=== PATIENT | female | born 1980 | race Caucasian/White ===

== ENCOUNTER 2025-01-29 12:58 | Outpatient (RCR) | payer OTHER, SELFPAY ==
--- NOTE | 2025-01-30 13:47 | HO.PHP ---
At 10:25 AM, [facility] staff member, Ana informed the clinician that Letitia's insurance has not been valid since December 21, 2024. Ana walked Letitia down for financial assistance but she didn't qualify, therefore, Letitia expressed she was going to be reaching out to DTA to get clarification around attendance.
== END 2025-01-29 23:59 | disposition home or self-care (01) ==
LOC: HO.PHPA 12:58
PROVIDERS: Visit Provider Psychiatry & Neurology Psychiatry
DX: F33.2 Major depressive disorder, recurrent severe without psychotic features (principal); F41.9 Anxiety disorder, unspecified; F43.10 Post-traumatic stress disorder, unspecified
CPT/HCPCS: 90791; 90853

== ENCOUNTER → 2025-02-28 09:31 | Outpatient (REF) | payer OTHER, SELFPAY ==
--- NOTE | 2025-02-28 | ECG_ITS ---
Test Reason : QTC CHECK ROUTINE Blood Pressure : */* mmHG Vent. Rate : 77 BPM Atrial Rate : 77 BPM P-R Int : 124 ms QRS Dur : 74 ms QT Int : 398 ms P-R-T Axes : 36 50 16 degrees QTcB Int : 450 ms Normal sinus rhythm Normal ECG No previous ECGs available Referred By: Reyna Gotti Electronically Signed By: Yobani Hastings
--- OUTSIDE RECORDS SUMMARY | 2025-02-28 10:03 | XMS_ITS | Clinical Summary ---
Author Organization [facility] Address [address] [place] [address] Phone Care Team Providers Care Shrimp Trawler Captain Name Role Phone Medina Harris MD Primary Care Provider [phone] Allergies Active Allergy Reactions Criticality Noted Date Comments Penicillins Hives Low 09/21/2023 Medications atorvastatin (LIPITOR) 10 mg tablet 4 Active citalopram (CeleXA) 20 mg tablet TAKE 1 TABLET BY MOUTH DAILY TAKE WITH 20 MG TO. MAKE A TOTAL DOSE OF 30 MG 3 Active citalopram (CeleXA) 10 mg tablet TAKE 1 TABLET BY MOUTH DAILY TAKE WITH 20 MG TO. MAKE A TOTAL DOSE OF 30 MG 3 Active flash glucose sensor (FREESTYLE VERONIQUE 2 SENSOR MISC) CHECK BLOOD GLUCOSE THREE TIMES DAILY 4 Active etonogestrel (NEXPLANON SDRM) Etonogestrel (NEXPLANON SC) Inject into the skin continuous Active dapagliflozin propanediol (Farxiga) 10 mg tablet 4 Active terconazole (TERAZOL 7) 0.4 % vaginal cream Insert vaginally at bedtime for 7 nights. 4 Active dulaglutide (Trulicity) 3 mg/0.5 mL pen injector injection 4 Active cetirizine (ZyrTEC) 10 mg tablet Take 1 tablet (10 mg total) by mouth 1 (one) time each day. 4 Active benzonatate (TESSALON) 100 mg capsule TAKE 1 CAPSULE BY MOUTH THREE TIMES DAILY FOR 7 DAYS FOR COUGH 4 Active amoxicillin-cla vulanate (AUGMENTIN) 500-125 mg per tablet Take 1 tablet by mouth every 8 (eight) hours. for 7 days 4 Active phenazopyridine (PYRIDIUM) 100 mg tablet TAKE 1 TABLET BY MOUTH THREE TIMES DAILY FOR 3 DAYS NEEDED FOR PAIN 4 Active naproxen (EC NAPROSYN) 500 mg EC tablet Take 1 tablet (500 mg total) by mouth. 3 Active ipratropium (ATROVENT) 42 mcg (0.06 %) nasal spray USE 2 SPRAYS IN EACH NOSTRIL THREE TIMES DAILY FOR 14 DAYS 4 Active Active Problems Problem Noted Date Diagnosed Date Adnexal cyst 01/21/2024 Overview (12/06/2024): Left adnexal cyst 3.6cm on ultrasound 09/2023 Obesity, Class II, BMI 35-39.9 01/21/2024 Encounters Date Type Department Care Team Description 12/21/2024 8:08 PM EST - 12/21/2024 9:49 PM EST Emergency [facility] Emergency [address] [place] [address] Gastroesophageal reflux disease, unspecified whether esophagitis present (Primary Dx) Discharge Disposition: Home or Self Care 12/16/2024 10:45 AM EST Office Visit Obstetrics and Gynecology [address] [id number] Eros Shah CNM Dyspareunia, female (Primary Dx); Elevated BP without diagnosis of hypertension 12/05/2024 Telephone Obstetrics & Gynecology - [facility] [address] [place] [address] Cristina Andres, ERON cramping from Last 3 Months Surgical History Surgery Date Site/Laterality Comments SECTION PROCEDURE: HISTORICAL DELIVERY; COMMENT: x 3 OTHER SURGICAL HISTORY PROCEDURE: HISTORY OTHER; COMMENT: kidnty stones Medical History Medical History Date Comments History of pre-eclampsia DX:Hist ory of pre-eclampsia History of gestational diabe jeny mellitus (GDM) DX:History of gestational di abetes mellitus (GDM); COMMENT: x 3 pregn Family History Medical History Relation Name Comments Breast cancer Maternal Grandmother Uterine cancer Mother Breast cancer Mother's side aunt Relation Name Status Comments Maternal Grandmother Alive Mother Alive Mother's side aunt Alive Social History Tobacco Use Types Packs/Day Years Used Date Smoking Tobacco: Never Smokeless Tobacco: Never Alcohol Use Standard Drinks/Week Comments Yes 0 (1 standard drink = 0.6 oz pur e alcohol) Comments No Sex and Gender Information Value Date Recorded Sex Assigned at Female 12/21/2024 9:46 PM EST Legal Sex Female 8:17 PM EST Gender Identity Female 12/21/2024 9:46 PM EST Sexual Orientation Straight 12/21/2024 9: 46 PM EST Obstetrics History Para Term AB IAB SAB Ectopic Multiple Livin g Live Births 5 3 3 2 1 1 3 3 Date Outcome GA Total Labor Labor/2nd/3rd Weight Sex Type Anes PTL Joelle A1 A5 Name Clin IAB 2000 CS-Un spec Livin g [place] Complications:Pre-eclampsia, White classification A1 gestational diabetes mellitus (GDM) Delivery Location:[facility] 2003 CS-Un spec Livin g [place] Complications:White classifi cation A1 gestational diabetes mellitus (GDM) Delivery Location:[facility] 015 F CS-Un spec Livin g [place] Complications:Pre-eclampsia, White classification A1 gestational diabetes mellitus (GDM) Delivery Location:[facility] Last Filed Vital Signs Vital Sign Reading Time Taken Comments Blood Pressure 139/81 12/21/2024 9:19 PM EST Pulse 78 12/21/2024 9:19 PM EST Temperature 36.8 ??C (98.2 ??F) 12/21/2024 9:19 PM ES T Respiratory Rate 18 12/21/2024 6:58 PM EST Oxygen Saturation 97% 12/21/2024 9:19 PM EST Inhaled Oxygen Concentration - - Weight 83.9 kg (185 lb) 12/21/2024 6:58 PM EST Height 160 cm (5' 3 ) 12/21/2024 6:58 PM EST Body Mass Index 32.77 12/21/2024 6:58 PM EST Plan of Treatment Upcoming Encounters Date Type Department Care Team (Late st Contact Info) Description 03/05/2025 8:45 AM EDT Office Visit Obstetrics & Gynecology - [address] [address] Cristina Andres, CNM [address] [place] [address] Health Maintenance Due Date Last Done Comments Breast Cancer Screening 1981 DTaP,Tdap,and Td Vaccines (1 - Tdap) 2000 Hepatitis B Vaccines (1 of 3 - 19+ 3-dose series) 2000 Depression Screening 12/19/2023 HIV Screening 12/19/2023 Hepatitis C Screening 12/19/2023 Social Influencers of Health Screening 12/19/2023 COVID-19 Vaccine (2 - 2023-2 5 season) 2024 04/25/2022 Influenza Vaccine (Season Ended) 2025 Cervical Cancer Screening: HPV 01/18/2029 01/19/2024 HIB Vaccines Aged Out No longer eligi ble based on patient's age to complete this topic HPV Vaccines Aged Out No longer eligi ble based on patient's age to complete this topic Hepatitis A Vaccines Aged Out No long er eligible based on patient's age to complete this topic IPV Vaccines Aged Out No longer eligi ble based on patient's age to complete this topic MMR Vaccines Aged Out No longer eligi ble based on patient's age to complete this topic Meningococcal ACWY Vaccine Aged Out N o longer eligible based on patient's age to complete this topic Meningococcal B Vaccine Aged Out No l onger eligible based on patient's age to complete this topic Pneumococcal Vaccine: Pediat rics (0 to 5 Years) and At-Risk Patients (6 to 64 Years) Aged Out No longer eligi ble based on patient's age to complete this topic RSV Immunization Patients Un eduardo 20 months Aged Out No longer eligible b ased on patient's age to complete this topic Varicella Vaccines Aged Out No longer eligible based on patient's age to complete this topic Procedures Procedure Name Priority Date/Time Associated Diagnosis Comments POC , URINE DIAGNOSTIC STAT 12/21/2024 7:16 PM EST URINALYSIS WITH REFLEX MICROSCOPIC STAT 12/21/2024 7:11 PM EST URINALYSIS WITH REFLEX MICROSCOPIC STAT 12/21/2024 7:11 PM EST CBC WITH AUTO DIFFERENTIAL STAT 12/21/2024 7:09 PM EST LIPASE STAT 12/21/2024 7:09 PM EST COMPREHENSIVE METABOLIC PANEL STAT 12/21/2024 7:09 PM EST CBC AND DIFFERENTIAL STAT 12/21/2024 7:09 PM EST TRICHOMONAS VAGINALIS ANTIGEN Routine 12/16/2024 11:11 AM EST Dyspareunia, female WET PREP, GENITAL Routine 12/16/2024 11: 11 AM EST Dyspareunia, female CHLAMYDIA TRACHOMATIS AND NEISSERIA GONORRHOEAE PCR Routine 12/16/2024 11:11 AM EST Dyspareunia, female HM HPV Routine 01/19/2024 from Last 3 Months or Most Recently Relevant to Health Maintenance Results * POC , urine manually resulted (12/21/2024 7:16 PM EST) Pathologist [facility] [place] HCG, Ur POC Negative Negative Urine Urine specimen obtained by clean catch procedure / Unknown 12/21/2024 7:16 PM EST Dm King DO POINT OF CARE TEST ENTER/EDIT ORDERABLES Final Result * (ABNORMAL) Urinalysis with reflex microscopic (12/21/2024 7:11 PM EST) Pathologist [facility] [place] Specific [place] Urine 1.042(H) 1.003 - 1.030 LAB URINALYSIS - AUTOMATED METHOD 12/21/2024 7:31 PM EST [facility] pH, Urine 7.0 5.0 - 8.0 pH LAB URINALYSIS - AUTOMATED METHOD 12/21/2024 7:31 PM EST [facility] Leukocytes, Urine Negative Negative LAB URINALYSIS - AUTOMATED METHOD 12/21/2024 7:31 PM [facility] Nitrite, Urine Negative Negative LAB URINALYSIS - AUTOMATED METHOD 12/21/2024 7:31 PM [facility] Protein, Urine Negative <=Trace mg/dL LAB URINALYSIS - AUTOMATED METHOD 12/21/2024 7:31 PM [facility] Glucose, Urine >=1000(A) Negative mg/dL LAB URINALYSIS - AUTOMATED METHOD 12/21/2024 7:31 PM [facility] Ketones, Urine Negative Negative mg/dL LAB URINALYSIS - AUTOMATED METHOD 12/21/2024 7:31 PM [facility] Urobilinogen , Urine 0.2 0.2 - 1.0 mg/dL LAB URINALYSIS - AUTOMATED METHOD 12/21/2024 7:31 PM [facility] Bilirubin, Urine Negative Negative LAB URINALYSIS - AUTOMATED METHOD 12/21/2024 7:31 PM [facility] Blood, Urine Negative Negative LAB URINALYSIS - AUTOMATED METHOD 12/21/2024 7:31 PM [facility] Urine Urine specimen obtained by clean catch procedure / Unknown Non-blood Collection / Unknown 12/21/2024 7:11 PM EST 12/21/2024 7:20 PM EST us Dm Kign DO LAB URINE ORDERABLES Final Res ult [facility] [address] [place] [address], [place] [phone] * CBC auto differential (12/21/2024 7:09 PM EST) WBC 6.5 4.8 - 10.8 K/mcL LAB HEMETOLOGY METHOD 12/21/2024 7:31 PM [facility] RBC 4.60 3.80 - 4.80 M/mcL LAB HEMETOLOGY METHOD 12/21/2024 7:31 PM [facility] Hemoglobin 13.8 11.5 - 16.0 g/dL LAB HEMETOLOGY METHOD 12/21/2024 7:31 PM [facility] Hematocrit 42.8 35.0 - 47.0 % LAB HEMETOLOGY METHOD 12/21/2024 7:31 PM [facility] MCV 93.0 79.0 - 98.0 FL LAB HEMETOLOGY METHOD 12/21/2024 7:31 PM [facility] MCH 30.0 27.0 - 32.0 pcg LAB HEMETOLOGY METHOD 12/21/2024 7:31 PM [facility] MCHC 32.2 32.0 - 37.0 g/dL LAB HEMETOLOGY METHOD 12/21/2024 7:31 PM [facility] RDW 12.5 11.0 - 15.0 % LAB HEMETOLOGY METHOD 12/21/2024 7:31 PM [facility] Platelets 367 130 - 400 K/mcL LAB HEMETOLOGY METHOD 12/21/2024 7:31 PM [facility] MPV 9.5 7.0 - 11.0 FL LAB HEMETOLOGY METHOD 12/21/2024 7:31 PM [facility] NRBC 0.0 <1.0 % LAB HEMETOLOGY METHOD 12/21/2024 7:31 PM [facility] NRBC Absolute 0.00 <0.10 K/mcL LAB HEMETOLOGY METHOD 12/21/2024 7:31 PM [facility] Neutrophils Relative 52.8 % LAB HEMETOLOGY METHOD 12/21/2024 7:31 PM [facility] Lymphocytes Relative 36.7 % LAB HEMETOLOGY METHOD 12/21/2024 7:31 PM [facility] Monocytes Relative 8.0 % LAB HEMETOLOGY METHOD 12/21/2024 7:31 PM [facility] Eosinophils Relative 1.4 % LAB HEMETOLOGY METHOD 12/21/2024 7:31 PM [facility] Basophils Relative 0.8 % LAB HEMETOLOGY METHOD 12/21/2024 7:31 PM [facility] Immature Granulocytes Relative 0.3 % LAB HEMETOLOGY METHOD 12/21/2024 7:31 PM [facility] Neutrophils Absolute 3.41 1.50 - 7.00 K/mcL LAB HEMETOLOGY METHOD 12/21/2024 7:31 PM [facility] Lymphocytes Absolute 2.37 1.00 - 5.00 K/mcL LAB HEMETOLOGY METHOD 12/21/2024 7:31 PM [facility] Monocytes Absolute 0.52 0.20 - 1.00 K/mcL LAB HEMETOLOGY METHOD 12/21/2024 7:31 PM [facility] Eosinophils Absolute 0.09 0.00 - 0.50 K/mcL LAB HEMETOLOGY METHOD 12/21/2024 7:31 PM [facility] Basophils Absolute 0.05 0.00 - 0.20 K/mcL LAB HEMETOLOGY METHOD 12/21/2024 7:31 PM [facility] Immature Granulocytes Absolute 0.02 0.00 - 0.03 K/mcL LAB HEMETOLOGY METHOD 12/21/2024 7:31 PM [facility] Blood Venous blood specimen / Unknown Venipuncture / Unknown 12/21/2024 7:09 PM EST 12/21/2024 7:20 PM EST us Dm King DO LAB BLOOD ORDERABLES Final Res ult [facility] [address] [place] [address], [place] [phone] * Lipase (12/21/2024 7:09 PM EST) Pathologist [facility] [place] Lipase 64 13 - 75 unit/L LAB CHEMISTRY METHOD 12/21/2024 7:58 PM [facility] Blood Venous blood specimen / Unknown Venipuncture / Unknown 12/21/2024 7:09 PM EST 12/21/2024 7:20 PM EST us Dm King DO LAB BLOOD ORDERABLES Final Res ult [facility] [address] [place] [address], [place] [phone] * (ABNORMAL) Comprehensive metabolic panel (12/21/2024 7:09 PM EST) Pathologist [facility] [place] Sodium 137 133 - 145 mmol/L LAB CHEMISTRY METHOD 12/21/2024 7:58 PM [facility] Potassium 3.9 3.5 - 5.5 mmol/L LAB CHEMISTRY METHOD 12/21/2024 7:58 PM [facility] Chloride 105 96 - 110 mmol/L LAB CHEMISTRY METHOD 12/21/2024 7:58 PM [facility] CO2 27 21 - 32 mmol/L LAB CHEMISTRY METHOD 12/21/2024 7:58 PM [facility] Anion Gap 5 3 - 11 LAB CHEMISTRY METHOD 12/21/2024 7:58 PM [facility] Glucose 202(H) 70 - 100 mg/dL LAB CHEMISTRY METHOD 12/21/2024 7:58 PM [facility] BUN 8 5 - 25 mg/dL LAB CHEMISTRY METHOD 12/21/2024 7:58 PM [facility] Creatinine 0.66 0.50 - 1.10 mg/dL LAB CHEMISTRY METHOD 12/21/2024 7:58 PM [facility] eGFR 112 >=60 mL/min/1. 73m2 LAB CHEMISTRY METHOD 12/21/2024 7:58 PM [facility] Comment:Calculation based on the??Chronic Kidney Disease Epidemiology Collaboration (CKD-EPI) equation refit??without adjustment for race. BUN/Creatinine Ratio 12.1 LAB CHEMISTRY METHOD 12/21/2024 7:58 PM [facility] Calcium 9.1 8.5 - 10.5 mg/dL LAB CHEMISTRY METHOD 12/21/2024 7:58 PM [facility] AST (SGOT) 12 10 - 42 unit/L LAB CHEMISTRY METHOD 12/21/2024 7:58 PM [facility] ALT (SGPT) 23 10 - 60 unit/L LAB CHEMISTRY METHOD 12/21/2024 7:58 PM [facility] Alkaline Phosphatase 72 42 - 121 unit/L LAB CHEMISTRY METHOD 12/21/2024 7:58 PM [facility] Total Protein 6.9 6.0 - 8.0 g/dL LAB CHEMISTRY METHOD 12/21/2024 7:58 PM [facility] Albumin 3.8 3.2 - 5.0 g/dL LAB CHEMISTRY METHOD 12/21/2024 7:58 PM [facility] Total Bilirubin 0.3 0.0 - 1.4 mg/dL LAB CHEMISTRY METHOD 12/21/2024 7:58 PM [facility] Blood Venous blood specimen / Unknown Venipuncture / Unknown 12/21/2024 7:09 PM EST 12/21/2024 7:20 PM EST us Dm King DO LAB BLOOD ORDERABLES Final Res ult [facility] [address] [place] [address], * Trichomonas vaginalis antigen (12/16/2024 11:11 AM EST) Trichomonas vaginalis Negative Negative 12/16/2024 9:54 PM EST [facility] Swab Vaginal structure / Unknown Non-blood Collection / Unknown 12/16/2024 11:11 AM EST 12/16/2024 11:11 AM EST us Eros GONSALES LAB MICROBIOLOGY - GENERAL ORD ERABLES Final Result [facility] [address] [place] [address], [place] [phone] * Chlamydia trachomatis and Neisseria gonorrhoeae molecular study (12/16/2024 11:11 AM EST) Neisseria gonorrhoeae PCR Negative Negative LAB MOLECULAR DIAGNOSTICS METHOD 12/17/2024 8:19 AM EST [facility] Chlamydia trachomatis PCR Negative Negative LAB MOLECULAR DIAGNOSTICS METHOD 12/17/2024 8:19 AM [facility] Swab Cervix uteri structure / Unknown Non-blood Collection / Unknown 12/16/2024 11:11 AM EST 12/16/2024 11:11 AM EST us Eros GONSALES LAB MICROBIOLOGY - GENERAL ORD ERABLES Final Result [facility] [address] [place] [address], [place] [phone] * Wet prep, genital (12/16/2024 11:11 AM EST) Clue Cells, Wet Prep Negative Negative 12/16/2024 9:54 PM EST [facility] Yeast, Wet Prep Negative Negative 12/16/2024 9:54 PM [facility] Trichomonas, Wet Prep Indeterminate Negative 12/16/2024 9:54 PM EST [facility] Comment:Refer to Trichomonas antigen. Swab Vaginal structure / Unknown Non-blood Collection / Unknown 12/16/2024 11:11 AM EST 12/16/2024 11:11 AM EST Eros Shah CNM LAB MICROBIOLOGY - GENERAL ORD ERABLES Final Result [facility] [address] [place] [address], * Cervical Cancer Screening: HPV (01/19/2024) Cervical Cancer Screening: HPV negative, abstracted Historical Provider HEALTH MAINTENANCE Final Result from Last 3 Months or Most Recently Relevant to Health Maintenance Insurance [facility] Care Teams Shrimp Trawler Captain Relationship Specialty Start Date End Date Medina Harris MD [address] [place] [phone] PCP - General Internal Medicine 03/22/19
[2025-02-28 10:31] LABS: MANUAL DIFF FLAG NO
[2025-02-28 10:43] LABS: Basophils Percent Auto 0.6 % (0-2); Eosinophils Absolute Auto 0.1 X10*3/uL (0.0-0.4); Eosinophils Percent Auto 1.3 % (0-4); Hematocrit 41.7 % (37.0-47.0); Hemoglobin 14.1 g/dl (12.0-16.0); Imm Gran Abs Auto 0.01 X10*3/uL (0.00-0.03); Imm Gran Pct Auto 0.1 % (0.0-0.4); Lymphocytes Percent Auto 29.1 % (20-40); Mean Corpuscular HGB Conc 33.8 g/dl (31.0-35.0); Mean Corpuscular Hemoglobin 30.7 pg (27.0-33.0); Mean Corpuscular Volume 90.7 fL (80.0-98.0); Mean Platelet Volume 9.7 fL (9.4-12.3); Monocytes Absolute Auto 0.4 X10*3/uL (0.1-1.2); Monocytes Percent Auto 5.6 % (2-11); Neutrophils Absolute Auto 4.4 x10*3/uL (2.0-8.3); Neutrophils Percent Auto 63.3 % (45-73); Platelet Count 326 X10*3/uL (160-400); Red Cell Distribution Width 12.4 % (11.0-16.0); White Blood Count 6.9 X10*3/uL (4.8-10.8)
[2025-02-28 10:54] LABS: Estimated Average Glucose 180 mg/dL; Hemoglobin A1C 240.7606 umol/L; Hemoglobin A1c % 7.9 % (<6.0); Total Hemoglobin (HGBA1C) 3806.4579 umol/L
[2025-02-28 11:11] LABS: Appearance Urine Clear; Color Urine Yellow; Glucose Urine UA >=1000 mg/dL (Negative); Leukocyte Esterase Urine Negative (Negative); Nitrite Urine Negative (Negative); PH 5.5 (5.0-9.0); Specific Gravity - Urine >= 1.030 (1.005-1.025); UMIC TRIGGER UA YES; Urine Blood Negative (Negative); Urine Ketones Negative (Negative); Urine Protein Negative (Neg-Trace)
[2025-02-28 11:20] LABS: Parathyroid Hormone Intact 52.2 pg/mL (8.7-77.1)
[2025-02-28 11:21] LABS: Alanine Aminotransferase 31 U/L (0-31); Albumin Level 4.3 g/dL (3.5-5.0); Alkaline Phosphatase 79 U/L (39-117); Anion Gap 13 (12-20); Aspartate Amino Transferase 24 U/L (5-31); Bilirubin Total 0.5 mg/dL (0.0-1.0); Blood Urea Nitrogen 9 mg/dL (9-16); C Reactive Protein 0.47 mg/dL (< or = 0.50); Calcium 9.4 mg/dL (8.4-10.2); Carbon Dioxide 26 mmol/L (22-29); Chloride 103 mmol/L (96-108); Cholesterol 250 mg/dL (<200); Estimated Glomerular Filt Rate > 60; Glucose Fasting 297 mg/dL (60-99); HDL Cholesterol 73 mg/dL (>40); Iron 102 mcg/dL (30-160); LDL Cholesterol Calculated 157 mg/dL (<100); Magnesium 1.7 mg/dL (1.6-2.6); Percent Iron Saturation 31 % (15-50); Phosphorus 4.2 mg/dL (2.7-4.5); Potassium 3.5 mmol/L (3.3-5.1); Sodium 138 mmol/L (135-145); Total Iron Binding Capacity 331 mcg/dL (228-428); Total Protein 7.7 g/dL (6.5-8.0); Triglycerides 101 mg/dL (<150); Unsaturated Iron Binding 229 ug/dL
[2025-02-28 11:32] LABS: HIV AB/AG Nonreactive (Nonreactive); HIV Num 1 0.06 S/CO (0.00-0.99)
[2025-02-28 11:33] LABS: Syphilis Screen Nonreactive (Nonreactive)
[2025-02-28 11:40] LABS: Erythrocyte Sedimentation Rate 10 MM/HR (0-20)
[2025-02-28 11:44] LABS: Bacteria Urine None Seen (None Seen); Hyaline Casts Urine 0-2 /LPF (0-2); RBC Urine 0-2 /HPF (0-2); Squamous Epithelial Cell Urine 0-2 /HPF (0-2); WBC Urine 0-5 /HPF (0-5)
[2025-02-28 11:47] LABS: Ferritin 82 ng/mL (10-250); Free T4 (Free Thyroxine) 0.99 ng/dL (0.71-1.85); Thyroid Stimulating Hormone 0.74 uIU/mL (0.32-4.0); Vitamin D 25-OH Total 21.7 ng/mL (>30)
[2025-02-28 11:53] LABS: UPreg QC Valid YES; Urine Pregnancy NEGATIVE (NEGATIVE)
[2025-02-28 11:53] LABS: Folate 18.4 ng/mL (> or = 4.0); Vitamin B12 620 pg/mL (200-900)
[2025-03-01 06:48] LABS: Triiodothyronine T3 Free 2.8 pg/mL (2.3-4.2); Triiodothyronine T3 Total 99 ng/dL (76-181)
[2025-03-01 09:09] LABS: Follicle Stimulating Hormone 8.7 mIU/mL; Lutenizing Hormone 4.9 mIU/mL
[2025-03-03 16:38] LABS: Homocysteine 10.8 umol/L (<10.4)
[2025-03-03 18:13] LABS: Thyroglobulin Antibodies 1 IU/mL (< or = 1); Thyroid Peroxidase Antibodies 2 IU/mL (<9)
[2025-03-04 03:48] LABS: Methylmalonic Acid 100 nmol/L (55-335)
== END ==
LOC: HO.CARD 09:31
PROVIDERS: PCP Internal Medicine; Visit Provider Psychiatry & Neurology Psychiatry
DX: F39 Unspecified mood [affective] disorder (principal); F41.0 Panic disorder [episodic paroxysmal anxiety]; R61 Generalized hyperhidrosis
CPT/HCPCS: 36415; 80053; 80061; 81001; 81003; 81025; 82306; 82607; 82670; 82728; 82746; 83001; 83002; 83036; 83090; 83540; 83735; 83921; 83970; 84100; 84144; 84403; 84425; 84439; 84443; 84480; 84481; 84482; 85025; 85652; 86140; 86376; 86780; 86800; 87389; 93005

== ENCOUNTER → 2025-02-28 09:45 | Outpatient (BNV) | payer MEDICAID, SELFPAY | PROVIDERS: PCP Internal Medicine; Visit Provider Internal Medicine Cardiovascular Disease | DX: Z13.6 Encounter for screening for cardiovascular disorders (principal) | CPT/HCPCS: 93010 ==

== ENCOUNTER → 2025-03-03 09:00 | Outpatient (BNV) | payer OTHER, SELFPAY | PROVIDERS: Visit Provider Psychiatry & Neurology Psychiatry | DX: F33.2 Major depressive disorder, recurrent severe without psychotic features (principal); F41.1 Generalized anxiety disorder; F43.10 Post-traumatic stress disorder, unspecified | CPT/HCPCS: 99213; 99214; 99499 ==

== ENCOUNTER 2025-03-10 09:45 | Outpatient (RCR) | payer OTHER, SELFPAY ==
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
[2025-02-20 12:23] VITALS: BP 149/90; PULSE 86; RESP 18; TEMP 37; BMI 34.4
--- NOTE | 2025-02-20 16:06 | HO.PHP ---
Pt's case was opened and reviewed in teams
--- NOTE | 2025-02-21 13:56 | HO.PS.ADMBH ---
HPI Date of Service: 02/21/25 Chief Complaint: MDD Sources of Information: patient interviewed, chart reviewed and crisis/core team assessment reviewed Diagnostics Vital Signs (24Hr): BMI result Body Mass Index 34.4 Meds/Allergies Meds Home Medications ?Medication ?Instructions ?Recorded ?Confirmed ?Type dapagliflozin propanediol 10 mg 10 mg PO DAILY 02/20/25 02/20/25 History tablet (Farxiga) dulaglutide 3 mg/0.5 mL 3 mg subcut QWEEK 02/20/25 02/20/25 History subcutaneous pen injector (Trulicity) hydroxyzine pamoate 25 mg TID PRN Anxiety 02/20/25 02/20/25 History trazodone 50 mg BEDTIME PRN Sleep 02/20/25 02/20/25 History Allergies Allergies Allergy/AdvReac Type Severity Reaction Status Date / Time penicillin V Allergy Unknown hives Verified 09/14/18 00:00 Assessment & Plan Assessment & Plan (1) MDD (major depressive disorder), recurrent severe, without psychosis: Status: Acute Code(s): F33.2 - Major depressive disorder, recurrent severe without psychotic features (2) JÚNIOR (generalized anxiety disorder): Status: Acute Code(s): F41.1 - Generalized anxiety disorder (3) Post traumatic stress disorder (PTSD): Status: Acute Code(s): F43.10 - Post-traumatic stress disorder, unspecified Plan Admit to [facility] reviewed: afebrile, BP ? bpm decrease citalopram to 20 mg qhs start prazosin 1 mg BID start Seroquel XR 50 mhs continue other regular medications? Routine lab work ordered as indicated EKG, routine for baseline QTc for medication considerations as indicated UDS as indicated MassPat reviewed Continue to monitor as per protocol Patient educated on: diagnosis and medication risk/benefits Informed Consent: understands Reason for continued partial hosp. stay Substantial Risk for: inability to function, rapid decompensation and med/psych decompensation Certification I certify that partial hospital treatment is medically necessary due to the symptoms and problems resulting from the patient's mental illness and the failure to treat the patient at the partial hospital level of care would likely result in the patient requiring inpatient psychiatric care which could not be prevented at a less intensive level of care. Time Spent With Patient Time: Total time managing care of this patient today __60__ minutes.
[2025-02-27 10:53] VITALS: BP 126/80; PULSE 84
--- NOTE | 2025-02-28 12:27 | HO.PHPPROGNO ---
Subjective Subjective Date of Service: 02/28/25 Reason For Visit: MDD Mental Status Exam Mental Status Exam Narrative: Alert, oriented, in no acute distress. Calm, cooperative, engaged. No psychomotor agitation or neurovegetative retardation. Eye contact maintained. Mood depressed, affect constricted. Speech normal. Thought process linear, coherent. Thought content related to stressors, transient hopelessness currently, denies SI or HI. No paranoia or delusional content elicited. No evidence of psychosis. Insight and judgment - fair but adequate. Diagnostics Vital Signs (24Hr): BMI result Body Mass Index 34.4 Assessment & Plan Assessment & Plan (1) MDD (major depressive disorder), recurrent severe, without psychosis: Status: Acute Code(s): F33.2 - Major depressive disorder, recurrent severe without psychotic features (2) JÚNIOR (generalized anxiety disorder): Status: Acute Code(s): F41.1 - Generalized anxiety disorder (3) Post traumatic stress disorder (PTSD): Status: Acute Code(s): F43.10 - Post-traumatic stress disorder, unspecified Plan continue PHP continue citalopram 20 mg qhs continue prazosin 1 mg qd-bid start mirtazapine 15 mg qhs prn sleep continue other regular medications? discontinued Seroquel XR 50 Routine lab work ordered as indicated EKG, routine for baseline QTc for medication considerations as indicated UDS as indicated MassPat reviewed Continue to monitor as per protocol Certification I certify that partial hospital treatment is medically necessary due to the symptoms and problems resulting from the patient's mental illness and the failure to treat the patient at the partial hospital level of care would likely result in the patient requiring inpatient psychiatric care which could not be prevented at a less intensive level of care. Total time managing care of this patient today ____ minutes. Discharge Plan Discharge Attending provider: Reyna Gotti Additional Instructions: 03/11/2025 10:00 AM - 11:00 AM [facility] Adult Comprehensive Assessment -?In person Prog: Outpatient Site: [address] [place] [address] Staff: RUBA WINSTON 03/26/2025 11:00 AM - 12:00 PM Psychiatric E/M New -?Telehealth v2 Prog: Psychiatric Services Site: [address] [place] [address] Staff: Salome Wolf Medications: New prazosin 1 mg capsule 1 mg PO BID PRN (Reason: anxiety) Qty: 20 0RF citalopram 20 mg tablet 20 mg PO DAILY Qty: 30 0RF mirtazapine 15 mg tablet 15 mg PO BEDTIME Qty: 14 0RF aripiprazole 2 mg tablet 2 mg PO BEDTIME Qty: 20 0RF No Action Trulicity 3 mg/0.5 mL pen injector 3 mg subcut QWEEK hydroxyzine pamoate tablet 25 mg TID PRN (Reason: Anxiety) trazodone tablet 50 mg BEDTIME PRN (Reason: Sleep) Rx Instructions: Take 1-2 as needed at bedtime dapagliflozin propanediol [Farxiga] 10 mg tablet 10 mg PO DAILY Stand Alone Forms: Patient Portal Discharge page Print Language: Estonian
--- NOTE | 2025-02-28 15:44 | HO.PHP ---
Pt's aftercare apt's are as follows: 03/11/2025 10:00 AM - 11:00 AM [facility] Adult Comprehensive Assessment -?In person Prog: Outpatient Site: [address] [place] [address] Staff: RUBA WINSTON 03/26/2025 11:00 AM - 12:00 PM Psychiatric E/M New -?Telehealth v2 Prog: Psychiatric Services Site: [address] [place] [address] Staff: Salome Wolf
--- NOTE | 2025-03-03 09:52 | PC.NURSE ---
Reviewed lab results with Dr. Gotti including: FBS 297, Cholesterol 250, LDL 157, Vitamin D 21.7, A1C 7.9, Urine Glucose bdloqor=5548, Spec Grav greater than =1.030.
--- NOTE | 2025-03-03 12:18 | HO.IOP ---
Clinician met with the patient after she disclosed negative racing thoughts. The patient manifested to be experiencing lack of sleep (just three hours), however described that as better than before. She reported inability to stop her mind or thinking and expressed that everything in her life is falling apart including relationships, living situation, and extreme fatigue. Clinician inquired about natural supports and the patient stated that she's not reaching out to anyone because she doesn't want to be a burden. Regarding her siblings or mother she indicated that the relationship is limited because her siblings didn't help or visit her father while sick and her mother does not understands her, per her report. The patient also expressed that she doesn't do well in groups and to consider that no changes towards improvements are happening. Clinician suggested to communicate her feelings and symptoms to the doctor (will be seen today) and encouraged her to follow up with outpatient providers after discharging from the Program.
--- NOTE | 2025-03-03 21:48 | HO.PHPPROGNO ---
Subjective Subjective Date of Service: 03/03/25 Reason For Visit: MDD Interim History: ?Not doing that good. I can not shut my brain off? Patient reports spent a long weekend was feeling overwhelmed. She reports her daughter had a dance competition so she had to contend with her daughter's father also being present. Made her sad anxious and stressed out. ?feel like my thoughts are just so negative? and tends to undermine her making her feel more insecure. ?I am always expecting the worse. Makes me distress people. I push them away but I do not want to them to leave?. She experiences passive SI but says she could never act on any of these thoughts inciting a number of protective factors. The mirtazapine has been helpful for falling asleep but has only been able to sleep for 3 or 4 hours. Denies any adverse effects will wake up and start ruminating she is open to trialing a different mood stabilizer and will plan to start on Abilify half a tablet tonight and will increase by 1 mg per day as tolerated she has been taking prazosin 1 mg around 18:00 and can not tell if it is helping with anxiety or sleep does not feel sedated we will try moving to 2 mg tonight. If felt to be helpful and not sedating we may consider putting on twice a day as needed. Medication Compliance: Yes Side effects from medications: No Attending Groups: Yes Review of Systems Acute medical concerns: No Mental Status Exam Mental Status Exam Narrative: Alert, oriented, in no acute distress. Calm, cooperative, engaged. No psychomotor agitation or neurovegetative retardation. Eye contact maintained. Mood depressed, affect constricted. Speech normal. Thought process linear, coherent. Thought content related to stressors, transient hopelessness currently, denies SI or HI. No paranoia or delusional content elicited. No evidence of psychosis. Insight and judgment - fair but adequate. Diagnostics Vital Signs (24Hr): BMI result Body Mass Index 34.4 Assessment & Plan Assessment & Plan (1) MDD (major depressive disorder), recurrent severe, without psychosis: Status: Acute Code(s): F33.2 - Major depressive disorder, recurrent severe without psychotic features (2) JÚNIOR (generalized anxiety disorder): Status: Acute Code(s): F41.1 - Generalized anxiety disorder (3) Post traumatic stress disorder (PTSD): Status: Acute Code(s): F43.10 - Post-traumatic stress disorder, unspecified Plan continue PHP continue citalopram 20 mg qhs increase prazosin to 2 mg qhs (consider BID if less sedating) start Abilify 1-2 mg qhs continue trazodone 50 mg qhs prn sleep continue other regular medications? discontinued: Seroquel Routine lab work reviewed - highly elevated glucose on Trulicity and Farxiga will defer to PCP office, labs to be faxed there EKG, routine reviewed, unremarkable UDS as indicated Continue to monitor Patient educated on: diagnosis, medication risk/benefits and medical condition Informed Consent: understands Reason for contiued partial hosp. stay Substantial Risk for: inability to function and med/psych decompensation Certification I certify that partial hospital treatment is medically necessary due to the symptoms and problems resulting from the patient's mental illness and the failure to treat the patient at the partial hospital level of care would likely result in the patient requiring inpatient psychiatric care which could not be prevented at a less intensive level of care. Total time managing care of this patient today __30__ minutes. Discharge Plan Discharge Attending provider: Reyna Gotti Additional Instructions: 03/11/2025 10:00 AM - 11:00 AM [facility] Adult Comprehensive Assessment -?In person Prog: Outpatient Site: [address] [place] [address] Staff: RUBA WINSTON 03/26/2025 11:00 AM - 12:00 PM Psychiatric E/M New -?Telehealth v2 Prog: Psychiatric Services Site: [address] [place] [address] Staff: Salome Wolf Medications: New prazosin 1 mg capsule 1 mg PO BID PRN (Reason: anxiety) Qty: 20 0RF citalopram 20 mg tablet 20 mg PO DAILY Qty: 30 0RF mirtazapine 15 mg tablet 15 mg PO BEDTIME Qty: 14 0RF aripiprazole 2 mg tablet 2 mg PO BEDTIME Qty: 20 0RF No Action Trulicity 3 mg/0.5 mL pen injector 3 mg subcut QWEEK hydroxyzine pamoate tablet 25 mg TID PRN (Reason: Anxiety) trazodone tablet 50 mg BEDTIME PRN (Reason: Sleep) Rx Instructions: Take 1-2 as needed at bedtime dapagliflozin propanediol [Farxiga] 10 mg tablet 10 mg PO DAILY Stand Alone Forms: Patient Portal Discharge page Print Language: Burmese
--- NOTE | 2025-03-04 22:31 | HO.PHPPROGNO ---
Subjective Subjective Date of Service: 03/04/25 Reason For Visit: MDD Interim History: Checked in with patient She has started on Abilify last night. She denies any at adverse effects feels it has been well tolerated. She also notes that she did not start on half a tablet that she in fact just went and started on a whole tablet. Says she only recalled those instructions after taking the medication but figured she was eager to be feeling better. She notes having a better day today overall versus yesterday and is hoping she will continue to ?level out? she denies any hopelessness or SI anxiety persists but so far is not too bad sleep and appetite intact may consider titrating further later in the week. Medication Compliance: Yes Side effects from medications: No Attending Groups: Yes Review of Systems Acute medical concerns: No Mental Status Exam Mental Status Exam Narrative: Alert, oriented, in no acute distress. Calm, cooperative, engaged. No psychomotor agitation or neurovegetative retardation. Eye contact maintained. Mood depressed, anxious, affect less constricted, moments of brightening. Speech normal. Thought process linear, coherent. Thought content related to stressors, denies hopelessness or SI or HI. No paranoia or delusional content elicited. No evidence of psychosis. Insight and judgment - fair but adequate. Diagnostics Vital Signs (24Hr): BMI result Body Mass Index 34.4 Assessment & Plan Assessment & Plan (1) MDD (major depressive disorder), recurrent severe, without psychosis: Status: Acute Code(s): F33.2 - Major depressive disorder, recurrent severe without psychotic features (2) ÚJNIOR (generalized anxiety disorder): Status: Acute Code(s): F41.1 - Generalized anxiety disorder (3) Post traumatic stress disorder (PTSD): Status: Acute Code(s): F43.10 - Post-traumatic stress disorder, unspecified Plan continue PHP continue Abilify 2 mg qhs continue citalopram 20 mg qhs continue prazosin 1 mg qd-bid continue mirtazapine 15 mg qhs prn sleep (held for sleep last night since starting ABilify) continue other regular medications: Farxiga, Trulicity, hydroyxyzine 25 mg TID, trazodone 50 mg qhs prn? discontinued: Seroquel XR 50 (did not tolerate) Routine lab work ordered as indicated EKG, routine for baseline QTc for medication considerations as indicated UDS as indicated Continue to monitor Patient educated on: diagnosis and medication risk/benefits Informed Consent: understands Reason for contiued partial hosp. stay Substantial Risk for: inability to function and med/psych decompensation Certification I certify that partial hospital treatment is medically necessary due to the symptoms and problems resulting from the patient's mental illness and the failure to treat the patient at the partial hospital level of care would likely result in the patient requiring inpatient psychiatric care which could not be prevented at a less intensive level of care. Total time managing care of this patient today _20___ minutes. Discharge Plan Discharge Attending provider: Reyna Gotti Additional Instructions: 03/11/2025 10:00 AM - 11:00 AM [facility] Adult Comprehensive Assessment -?In person Prog: Outpatient Site: [address] [place] [address] Staff: RUBA WINSTON 03/26/2025 11:00 AM - 12:00 PM Psychiatric E/M New -?Telehealth v2 Prog: Psychiatric Services Site: [address] [place] [address] Staff: Salome Wolf Medications: New citalopram 20 mg tablet 20 mg PO DAILY Qty: 30 0RF mirtazapine 15 mg tablet 15 mg PO BEDTIME Qty: 14 0RF aripiprazole 2 mg tablet 2 mg PO BEDTIME Qty: 20 0RF Continued prazosin 1 mg capsule 1 mg PO BID PRN (Reason: anxiety) Qty: 30 0RF No Action Trulicity 3 mg/0.5 mL pen injector 3 mg subcut QWEEK hydroxyzine pamoate tablet 25 mg TID PRN (Reason: Anxiety) trazodone tablet 50 mg BEDTIME PRN (Reason: Sleep) Rx Instructions: Take 1-2 as needed at bedtime dapagliflozin propanediol [Farxiga] 10 mg tablet 10 mg PO DAILY Stand Alone Forms: Patient Portal Discharge page Print Language: Norwegian
--- NOTE | 2025-03-06 17:43 | HO.PHP ---
At roughly 9:30am sign writer letterer or painter met with Letitia to discuss potential discharge this week. Pt was immediatley tearful, struggled to express why she was crying. Stated she was overwhelmed with several stressor and worried if she discharged today , if she would need a higher level of care . After some time pt was able to express why she felt that way, expressed a lot of shame around a current unhealthy relationship she is in that she needs to end. Stated she did not bring it up in group because she felt embarrassed and shameful about it and acknowledged she did not feel able to end it because the person is her only support since losing her father. Pt shared the grief over the loss of her father was extremely painful, pt sobbed while saying he was all I had . Letitia expressed guilt over his situation leading up to his and reported she had not received support regarding her father or her grief. Letitia listed numerous material losses at well, all since August 2024 when her father eg. lost her job, her car and her apartment after her father . Pt is currently living with her niece and her daughter. Letitia agreed she could benefit from extending her time at [facility] while she continues to make medication changes with [facility] provider and more time to get support around her grief, her relationship and her stressors. Letitia agreed to try to open up more in groups and work on a plan to address her money and housing situation while at [facility]. Letitia's affect was depressed, tearful, withdrawn, regressed at times, needed extra support and prompts to express her feelings and thoughts. Letitia was more hopeful after meeting with this sign writer letterer or painter. Pt was provided contact info to [facility] respite on [facility] in [place]. Stated she felt safe and had plans with family this weekend that would provide a healthy distraction but pt appreciated the info to Respite and agreed to call crisis or Respite should she feel increasingly symptomatic this weekend. This conversation with Letitia was reported to the [facility] team and Letitia met with [facility] provider today after this conversation.
--- NOTE | 2025-03-06 23:08 | HO.PHPPROGNO ---
Subjective Subjective Date of Service: 03/06/25 Reason For Visit: MDD Interim History: Not the greatest today patient was seen for follow-up. Emotionally dysregulated she appears to be struggling with her thoughts was tearful throughout our discussion and had difficulty engaging. She is mostly focused on relationship stressor, a situation she finds so embarrassing that she has only spoken to 1 other person about this in the program. She reports the relationship as unhealthy and says she knows she needs to let it go because it is not helping me get better . She continues on Abilify at 2 mg, she reports possible side effect of flashing lights which she notices only at nighttime as she is waking from sleep. Mostly she notices it when her eyes are closed as if there is external light shining through her eyes impulses. She denies any myopic changes, denies any photophobia or visual distortions. She denies any eye pain headaches or neck pain. She insists it is not problematic and denies that it wakes her from sleep. only that she notices it when she happens to wake up to go to the bathroom or turn over. She says she is able to fall back asleep. She continues on prazosin 1 mg twice a day and we discussed trying to increase morning dose to 2 mg seeing as anxiety persists but she is not notice any appreciative difference since starting the prazosin in terms of helping her anxiety. She denies any adverse effects no dizziness lightheadedness. We also agreed to slowly bump up the Abilify and will order 5 mg tablets so she can split to take 2.5 mg. She endorses transient hopelessness denies any thoughts of harming herself or others. Denies any AH or VH. I have previously reviewed literature with mention of complaints of flashing (strobe-like) lights in the peripheral vision, as well as have seen it in a previous patients (where it notably occurs at night). Will likely need to avoid rapid changes/increases in dose and see if symptoms improve before making further adjustments beyond 2.5 mg. Medication Compliance: Yes Side effects from medications: Yes (as noted) Attending Groups: Yes Review of Systems Acute medical concerns: No Mental Status Exam Mental Status Exam Narrative: Alert, oriented, in no acute distress. Sad, more withdrawn today.. No psychomotor agitation or neurovegetative retardation. Eye contact intermittent. Mood depressed, anxious, affect tearful, dysphoric. Speech normal. Thought process linear, coherent. Thought content related to stressors,feeling demoralized, some helplessness, transient hopelessness, denies SI, intention, urge or plan. Denies AI or HI. No paranoia or delusional content elicited. No evidence of psychosis. Insight and judgment - fair but adequate. Diagnostics Vital Signs (24Hr): BMI result Body Mass Index 34.4 Assessment & Plan Assessment & Plan (1) MDD (major depressive disorder), recurrent severe, without psychosis: Status: Acute Code(s): F33.2 - Major depressive disorder, recurrent severe without psychotic features (2) JÚNIOR (generalized anxiety disorder): Status: Acute Code(s): F41.1 - Generalized anxiety disorder (3) Post traumatic stress disorder (PTSD): Status: Acute Code(s): F43.10 - Post-traumatic stress disorder, unspecified Plan continue PHP increase Abilify to 2.5-3 mg qhs continue citalopram 20 mg qhs continue prazosin 3 mg/d (split 2 mg/1mg) continue mirtazapine 15 mg qhs prn sleep (held for sleep last night since starting ABilify) continue other regular medications: Farxiga, Trulicity, hydroyxyzine 25 mg TID, trazodone 50 mg qhs prn? discontinued: Seroquel XR 50 (did not tolerate) Routine lab work ordered as indicated EKG, routine for baseline QTc for medication considerations as indicated UDS as indicated Continue to monitor Patient educated on: diagnosis, medication risk/benefits and medical condition Informed Consent: understands Reason for contiued partial hosp. stay Substantial Risk for: inability to function, rapid decompensation and med/psych decompensation Certification I certify that partial hospital treatment is medically necessary due to the symptoms and problems resulting from the patient's mental illness and the failure to treat the patient at the partial hospital level of care would likely result in the patient requiring inpatient psychiatric care which could not be prevented at a less intensive level of care. Total time managing care of this patient today ___30_ minutes. Discharge Plan Discharge Attending provider: Reyna Gotti Additional Instructions: 03/11/2025 10:00 AM - 11:00 AM CHD Adult Comprehensive Assessment -?In person Prog: Outpatient Site: [address] [place] [address] Staff: RUBA WINSTON 03/26/2025 11:00 AM - 12:00 PM Psychiatric E/M New -?Telehealth v2 Prog: Psychiatric Services Site: [address] [place] [address] Staff: Salome Wolf Medications: New citalopram 20 mg tablet 20 mg PO DAILY Qty: 30 0RF mirtazapine 15 mg tablet 15 mg PO BEDTIME Qty: 14 0RF aripiprazole 2 mg tablet 2 mg PO BEDTIME Qty: 20 0RF Continued prazosin 1 mg capsule 1 mg PO BID PRN (Reason: anxiety) Qty: 30 0RF No Action Trulicity 3 mg/0.5 mL pen injector 3 mg subcut QWEEK hydroxyzine pamoate tablet 25 mg TID PRN (Reason: Anxiety) trazodone tablet 50 mg BEDTIME PRN (Reason: Sleep) Rx Instructions: Take 1-2 as needed at bedtime dapagliflozin propanediol [Farxiga] 10 mg tablet 10 mg PO DAILY Stand Alone Forms: Patient Portal Discharge page Print Language: Nigerien
--- NOTE | 2025-03-13 15:25 | HO.PHP ---
Letitia was unable to attend PHP yesterday and today due to her housing situation, reports she has to move all her belongings by the end of the week. Pt was called today, discussed her situation and feels she will benefit from discharging from program today and returning in a week or 2 when she is done moving and her schedule is more stable. Letitia's insurance was contacted and informed that PHP will not be extended her stay as was planned. A voicemail was left for Josefa at [facility] today in the am. Letitia completed a phone discharge successfully. See the discharge summary for more information.
--- NOTE | 2025-03-14 10:59 | PC.NURSE ---
Dr. Gotti is aware of patient's lab results including FBS 297, A1c 7.9, Ur glucose > +1000, Ur specific gravity >1.030. Dr. Gotti to call patient to review.
--- NOTE | 2025-03-17 12:43 | PC.NURSE ---
Patient lab results including FBS 297, A1C 7.9, Ur glucose >1000, Ur spec gravity >1.030. Per Doctor Shen she spoke to Letitia this morning about her lab results. Letitia has an appointment with her PCP 03/19/25. I called Letitia's PCP office to confirm they received faxed lab results that were sent to them on 03/14/25. I spoke to Smitha and requested a nurse call me back to review the results, she is unsure if they received the results. Letitia is also coming to the program tomorrow to sign her discharge paperwork thus will also give Letitia a copy of her lab results to bring to her PCP appointment.
--- NOTE | 2025-03-18 15:49 | PC.NURSE ---
I spoke to Bee RAPHAEL from Letitia's PCP's office and confirmed they did receive faxed lab results completed on 02/28/[address] Reyna Gotti. I also reviewed patient's FBS 297, A1C 7.9, and Ur glucose >=1000. Patient has an appointment with her PCP Dr. Harris 03/19/25.
--- NOTE | 2025-03-20 12:49 | P.EN_ITS ---
Event Note Date of Service: 03/24/25 Event Note: Patient returns to [facility] to complete discharge process and sign paperwork. Continues on Abilify 5 mg daily at night feels it has helped stabilize her mood, is more even now however still continues to run low, not feeling like doing much. Has been better able to see the positive in things better but not feeling so unmotivated to stay up with tasks and chores. Denies hopelessness or SI. Denies any recent thoughts. No thoughts of harming self or others. We had d iscussed starting Wellbutrin but did not have an opportunity to but we agreed to start on it today given that she has her 1st provider appointment next week on 03/26. Also has her therapy appointment on 03/25. She is also looking for refill on prazosin 2 mg which she ran out of couple of days ago and has definitely noticed disruption in her sleep and was doing well with 2 mg. Denies any adverse effects send over refills she may also continue with Abilify and has some 2 mg tablets she could take as needed in the evening for intrusive thoughts and racing thoughts especially in the evenings which have improved with Abilify 5mg but still occur occasionally. Time Spent With Patient Time: Total time managing care of this patient today __20__ minutes.
== END 2025-03-10 23:59 | disposition home or self-care (01) ==
LOC: HO.PHPA 09:45
PROVIDERS: Visit Provider Psychiatry & Neurology Psychiatry
DX: F33.2 Major depressive disorder, recurrent severe without psychotic features (principal); F41.1 Generalized anxiety disorder; F43.10 Post-traumatic stress disorder, unspecified; Z79.899 Other long term (current) drug therapy
CPT/HCPCS: 90791; 90853